=== PATIENT | female | born 1985 | race African-American/Black ===

== ENCOUNTER 2016-12-14 05:29 | Emergency (ER) | payer MEDICAID, OTHER ==
[~2016-12-14] VITALS: Ht 162.6 cm; Wt 117.9 kg
--- NOTE | 2016-12-14 05:50 | NUR ---
PT BIB [facility] WITH A C/O ABD PAIN SINCE 190 YESTERDAY. PT STATED THAT SHE WAS OUT LAST NIGHT AND BENT OVER TO TIE HER SHOE AND FELT A POP. PT STATED THAT THE PAIN WAS PROGRESSIVELY GETTING WORSE.
[2016-12-14 06:10] LABS: CALCIUM, SERUM 8.7 mg/dL (8.5-10.1); CREATININE 0.9 mg/dL (0.6-1.3); POTASSIUM 3.8 mmol/L (3.5-5.1)
[2016-12-14 06:11] LABS: APPEARANCE,URINE SL CLOUDY (CLEAR); BILIRUBIN,URINE NEGATIVE (NEGATIVE); BLOOD, URINE NEGATIVE Ery/uL (NEGATIVE); COLOR,URINE YELLOW (YELLOW); KETONES,URINE NEGATIVE (NEGATIVE); LEUKOCYTE ESTERASE ,URINE NEGATIVE (NEGATIVE); NITRITE, URINE NEGATIVE (NEGATIVE); PROTEIN,URINE NEGATIVE (NEGATIVE); UGLUCOSE NEGATIVE (NEGATIVE); UROBILINOGEN,URINE 0.2 EU/dL (0.2)
[2016-12-14 06:13] LABS: BASOPHILS % (AUTO) 0.5 % (0.0-2.0); EOSINOPHILS # (AUTO) 0.1 /CMM (0.0-0.7); EOSINOPHILS % (AUTO) 1.4 % (0.0-6.0); HEMATOCRIT 36 % (33-45); HEMOGLOBIN 12.2 g/dL (11.5-14.8); LYMPHOCYTES # (AUTO) 1.9 /CMM (0.8-4.8); MEAN CORPUSCULAR HEMOGLOBIN 27 PG (26.0-33.0); MEAN CORPUSCULAR HGB CONC 34 g/dl (31.0-36.0); MEAN CORPUSCULAR VOLUME 79 fL (82-100); MONOCYTES # (AUTO) 0.7 /CMM (0.1-1.30); MONOCYTES % (AUTO) 11.1 % (2.0-12.0); NEUTROPHILS # (AUTO) 3.7 /CMM (1.8-8.9); PLATELET COUNT (AUTO) 210 /CMM (150-450); RDW COEFFICIENT OF VARIATION 14.4 (11.5-15.0); RED BLOOD CELL COUNT(AUTO) 4.59 MIL/uL (4.0-5.2); WHITE BLOOD COUNT (AUTO) 6.4 K/uL (4.3-11.0)
[2016-12-14] MEDS ORDERED: ONDANSETRON HCL/PF 4 MG/2 ML VIAL IVP ONE (06:30)
[2016-12-14] MEDS ORDERED: IV NS 0.9% 1,000 ML BAG IV ONE (06:30)
[2016-12-14] MEDS ORDERED: MORPHINE SULFATE INJ 2 MG/ML DISP.SYRIN IV ONE (06:30)
--- NOTE | 2016-12-14 06:39 | NUR ---
UNABLE TO START AN IV IN THE PT. DR. GONZALEZ IS AWARE. NEW ORDERS GIVEN.
[2016-12-14] MEDS ORDERED: ONDANSETRON HCL/PF 4 MG/2 ML VIAL ONE (06:46)
[2016-12-14] MEDS ORDERED: MORPHINE SULFATE INJ 4 MG/ML DISP.SYRIN ONE (06:46)
--- NOTE | 2016-12-14 06:50 | NUR ---
PT REC'D MEDICATION IM.
[2016-12-14] MEDS ORDERED: MORPHINE SULFATE INJ 2 MG/ML DISP.SYRIN IM ONE (07:00)
[2016-12-14] MEDS ORDERED: ONDANSETRON HCL/PF 4 MG/2 ML VIAL IM ONE (07:00)
--- NOTE | 2016-12-14 07:19 | NUR ---
REPORT GIVEN TO CARROLL CONLEY FOR WILLIAM.
--- NOTE | 2016-12-14 07:20 | NUR ---
ASSUME PT CARE. RESTING IN BED. STABLE VITALS. WILL MONITOR CLOSELY.
--- NOTE | 2016-12-14 09:11 | NUR ---
Patient discharged to home in stable condition. Written and verbal after care instructions given. Patient verbalizes understanding of instruction.
[2016-12-14 09:12] VITALS: BP 126/80
== END 2016-12-14 09:12 | disposition home or self-care (01) ==
LOC: ER 05:31
DX: O26.891 Other specified pregnancy related conditions, first trimester (principal); R10.31 Right lower quadrant pain; R10.32 Left lower quadrant pain; Z3A.09 9 weeks gestation of pregnancy; N80.9 Endometriosis, unspecified; Z88.0 Allergy status to penicillin
CPT/HCPCS: 36415; 76856-TC; 80048-TC; 81000-TC; 84702-TC; 84703-TC; 85025-TC; A4606; J2270; J2405; Z7610